=== PATIENT | male | born 1975 | race Caucasian/White ===

== ENCOUNTER 2021-08-25 13:01 | Emergency (ER) | payer BC ==
[2021-08-25 13:09] VITALS: RESP 20; TEMP 97.9
[2021-08-25] MEDS ORDERED: KETOROLAC 15 MG/ML 1 ML VIAL IM STA (13:27)
[2021-08-25] MEDS ORDERED: CYCLOBENZAPRINE 10 MG TAB PO STA (13:27)
--- NOTE | 2021-08-25 13:45 | ED ---
General Adult HPI - General Chief complaint: Extremity Injury, Upper Stated complaint: Right Shoulder Injury Time Seen by Provider: 08/25/21 13:10 Source: patient, RN notes reviewed, old records reviewed Mode of arrival: ambulatory Limitations: no limitations - History of Present Illness Initial comments: This is a 46-year-old male who presents emergency Department complaining of right anterior shoulder pain. Patient states 3 days ago he was having sex and he was propped up on his outstretched arm well study started having severe pain in the anterior aspect of his right shoulder. Patient states ever since then it is very tender to touch and pushing with that arm hurts in the anterior shoulder. Patient denies any other injury. Patient denies any numbness or weakness. Patient states it does not hurt to externally rotate or abduct but does hurt to push forward. Patient denies any fever chills. - Related Data Previous Rx's Medication Instructions Recorded Cyclobenzaprine [Flexeril] 10 mg PO TID #20 tab 08/25/21 Ibuprofen [Motrin] 600 mg PO Q6HR PRN #20 tab 08/25/21 Allergies Allergy/AdvReac Type Severity Reaction Status Date / Time No Known Allergies Allergy Verified 08/25/21 13:09 Review of Systems ROS Statement: Those systems with pertinent positive or pertinent negative responses have been documented in the HPI. ROS Other: All systems not noted in ROS Statement are negative. 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 Patient is in mild distress. EYES Patient's pupils are equal and round. Extraocular motion is intact SKIN Unremarkable NEURO The patient is alert and oriented 3 PYSCH Patient has normal interpersonal interactions. MUSCULOSKELETAL Patient's lateral malleolus is tender the foot is edematous 2+ edema from just above the ankle down to her foot. Limitations: no limitations Course Vital Signs 08/25/21 13:07 Temperature 97.9 F Pulse Rate 107 H Respiratory 20 Rate Blood Pressure 149/94 O2 Sat by Pulse 99 Oximetry Medical Decision Making - Medical Decision Making X-ray of the shoulder shows no acute abnormality. Patient received Toradol and Flexeril on the emergency department. Disposition Clinical Impression: Pectoralis muscle strain Disposition: HOME SELF-CARE Condition: Good Prescriptions: Cyclobenzaprine [Flexeril] 10 mg PO TID #20 tab Ibuprofen [Motrin] 600 mg PO Q6HR PRN #20 tab PRN Reason: For pain Is patient prescribed a controlled substance at d/c from ED?: No Referrals: None,Stated [Primary Care Provider] - 1-2 days Time of Disposition: 14:04
--- NOTE | 2021-08-25 14:20 | XR ---
EXAMINATION TYPE: XR shoulder complete RT DATE OF EXAM: 08/25/2021 COMPARISON: NONE HISTORY: Shoulder pain TECHNIQUE: 3 views FINDINGS: There is no evidence of fracture nor dislocation. Joint spaces are normal. Soft tissues juana ear normal. IMPRESSION: Negative right shoulder exam. No fracture.
[2021-08-25 14:30] VITALS: BP 140/89; PULSE 92
== END 2021-08-25 14:30 | disposition home or self-care (01) ==
LOC: EC 13:01
DX: S46.811A Strain of other muscles, fascia and tendons at shoulder and upper arm level, right arm, initial encounter (principal); F17.200 Nicotine dependence, unspecified, uncomplicated; X58.XXXA Exposure to other specified factors, initial encounter
CPT/HCPCS: 73030; 99283; 96372; J1885